=== PATIENT | male | born 1995 | race Caucasian/White ===

== ENCOUNTER 2024-03-09 14:12 | Outpatient (AMB) | payer OTHER, SELFPAY ==
--- NOTE | 2024-03-09 14:18 | MHC.OFFWIV ---
Intake Vital Signs 03/09/24 14:22 Height 5 ft 5 in Weight 230 lb BMI 38.3 BP 122/76 Blood Pressure Location Rt brachial Position Sitting Pulse 102 H Pulse Source Pulse Oximeter Temp 99.3 F Temp Source Oral Pulse Oximetry (%) 98 Intake Visit Reasons: [employer] Stomach/LT wrist Intake Note: pt is here for c/o left wrist pain, due to sprain last week, had it evaluated but recently hurt it again. patient also stated he has been having bad stomach pain Patient Tobacco Use Status: Never used Tobacco Allergies No Known Allergies Allergy (Verified 03/09/24 14:23) Do you need a note to return to daycare/school/sports/work: Yes HPI HPI Comments History of Present Illness Details He presents to office with L wrist and abdominal pain Abdominal pain onset yesterday am Near umbillicus and RLQ No hx of abdominal surgeries Pt states intermittent pain + diarrhea; described as loose. No blood or melena + fever in office and admits to chills Taking Ibuprofen and tylenol and one dose of pepto + nausea without vomiting No eat since yesterday. No eating out this week. 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 No fish eaten Pain currently is 4/10 L wrist pain hurt at work last week; sprain per pt Over weekend he was icing wrist and his cats got into a fight and he had to break it up He tripped on laundry basket and re-hurt his L wrist + red/swelling and painful since thursday night Wrist pain is intermittent 8/10 PFSH Social History Patient Tobacco Use Status: Never used Tobacco Review of Systems Const Reports chills and Reports fever(s) Card Denies chest pain and Denies dyspnea Resp Denies dyspnea GI Reports abdominal pain, Denies melena, Denies hematochezia, Reports diarrhea, Reports nausea and Denies vomiting Denies difficulty urinating Musc Reports back pain (chronic) and Reports joint swelling (L wrist) Physical Exam Vital Signs: Last Vital Signs Temp 99.3 F 03/09/24 14:22 Pulse 102 H 03/09/24 14:22 BP 122/76 03/09/24 14:22 Pulse Ox 98 03/09/24 14:22 BMI result Body Mass Index 38.3 General: Non-toxic, NAD. Speaking full sentences. Skin: Warm dry throughout. No obvious edema, erythema or ecchymosis to L wrist. Eye: EOMI HENT: Bilateral canals clear. TM non-erythematous, non-bulging. No TM perforation or hemotympanum noted. Respiratory: CTA bilaterally. No wheezes, rales or rhonchi Cardiac: RRR. No murmur Abdominal: BS present. + tenderness to palpation umbillical region and RLQ. Negative Psoas sign. + pain with [place]. No rebound or guarding. No palpable masses. No abdominal distention or pusatile mass. MSK: + tenderness to palpation ulnar aspect L wrist. No scaphoid tenerness.+ full rom digit L hand. Neurology: A/O. No aphasia or facial droop. Gait without abnormality Psych: Good mood and affect Assessment & Plan Assessment & Plan (1) Abdominal pain: Code(s): R10.9 - Unspecified abdominal pain Qualifiers: Abdominal location: right lower quadrant Qualified Code(s): R10.31 - Right lower quadrant pain Plan: Patient seen and evaluated. + low grade fever + umbillical pain with RLQ radiation; discussed can not rule out appendicitis. Expect called to [facility] per pt request and he will have his friend bring him Patient gave verbal understanding and had no additional questions or concerns at time of discharge All questions answered (2) Wrist pain, left: Code(s): M25.532 - Pain in left wrist Plan: He will further be evaluated in ER and note for work should be provided Coding Level of Care Code New Pt Level 4 (46299) Diagnoses Right lower quadrant abdominal pain R10.31 Abdominal location: right lower quadrant Wrist pain, left M25.532
[2024-03-09 14:22] VITALS: BP 122/76; PULSE 102; TEMP 37.4; O2SAT 98; BMI 38.3
== END 2024-03-09 15:22 | disposition home or self-care (01) ==
PROVIDERS: PCP Pediatrics; Visit Provider Physician Assistant
DX: R10.31 Right lower quadrant pain (principal); M25.532 Pain in left wrist
CPT/HCPCS: 99204

== ENCOUNTER 2024-03-09 15:12 | Emergency (ER) | payer OTHER, SELFPAY ==
--- NOTE | ~2024-03-09 | US_ITS ---
Examination: Ultrasound appendix History: Right lower quadrant tenderness. Comparison: No prior similar studies are available for comparison. Technique: Grayscale and color Doppler images were performed of the right upper and right lower quadrant. Findings: The appendix is not demonstrated due to overlying gas and stool. No inflammatory changes are identified in the right lower quadrant. There is no free fluid. Images of the [place] pouch were obtained without evidence of free fluid or inflammatory changes. US/US appendix Impression: 1. Evaluation of the appendix is non-diagnostic due to overlying gas and stool. No inflammatory changes identified in the right lower quadrant. 2. No significant sonographic abnormality in the region of the [place] pouch.
--- NOTE | ~2024-03-09 | CT_ITS ---
EXAMINATION: CT ABDOMEN AND PELVIS WITH CONTRAST CLINICAL INFORMATION: Periumbilical and right lower quadrant pain COMPARISON: Ultrasound of the appendix 6:00 PM yesterday TECHNIQUE: Multidetector volumetric images were obtained from the superior aspect of the liver through the pubic symphysis following administration 85 mL of Omnipaque 350 intravenous contrast. Sagittal and coronal reformatted images were obtained on the technologist's workstation. Oral contrast: No This CT examination was performed using dose optimization techniques as appropriate, variously including the following: *Automated exposure control *Adjustment of mA and/or kV according to patient size (this includes techniques or standardized protocols for targeted exams where dose is matched to indication/reason for exam; i.e. extremities or head) *Use of iterative reconstruction technique DLP: 1078 mGy-cm FINDINGS: LUNG BASES: The visualized lung bases are unremarkable. LIVER, GALLBLADDER, AND BILIARY TREE: The liver is normal in size, shape, and attenuation. No focal hepatic lesion or biliary ductal dilatation is present. The gallbladder is unremarkable with no evidence of radiopaque gallstones, gallbladder wall thickening, or obvious pericholecystic inflammatory changes. PANCREAS: Unremarkable. SPLEEN: Unremarkable. ADRENAL GLANDS: Unremarkable. KIDNEYS AND URETERS: The kidneys are normal in size, shape, and attenuation. No hydronephrosis, hydroureter, or calculi seen. No perinephric stranding. BLADDER: Empty but unremarkable GASTROINTESTINAL TRACT: The small and large bowel are unremarkable. The appendix is unremarkable. ABDOMINAL WALL: No significant hernia is appreciated. LYMPH NODES: Normal. VASCULAR: Unremarkable. PELVIC VISCERA: The prostate and seminal vesicles are unremarkable. OSSEOUS STRUCTURES: Unremarkable. CT/CT abdomen pelvis w IV con IMPRESSION: A cause for the patient's abdominal pain has not been found. The appendix is normal. Fleischner guidelines were followed.
--- NOTE | 2024-03-09 15:29 | ED.GENADULT ---
[facility] - General Adult General Chief complaint: Abdominal Pain Stated complaint: ref by UC for possible appendix problem Time Seen by Provider: 03/09/24 22:31 Source: patient Mode of arrival: ambulatory History of Present Illness ED Provider: Dr Toledo [facility] narrative: 29-year-old male without significant past medical history states that he began having periumbilical pain that has now encompassed the right lower quadrant with associated nausea, vomiting as well as chills, an episode of diarrhea, denies urinary symptoms or history of renal colic and no intra-abdominal surgical history. Related Data Previous Rx's ?Medication ?Instructions ?Recorded ondansetron 4 mg disintegrating 4 mg PO Q8H PRN nausea and 03/10/24 tablet vomiting #7 tabs Allergies Allergy/AdvReac Type Severity Reaction Status Date / Time cefaclor [From Ceclor] Allergy Unknown Verified 03/09/24 15:32 Review of Systems Review of Systems: Pertinent positives and negatives as stated in [facility] Past Medical History Source: nursing notes reviewed Social History Social History Patient Tobacco Use Status: Never used Tobacco Advance Directives: No Advance Directives Information Provided: No Physical Exam ED Vital Signs: Vital Signs - 24 hr 03/09/24 15:30 03/09/24 22:21 03/10/24 00:11 Temperature 98.2 F 97.2 F 98.9 F Pulse Rate 84 73 64 Respiratory Rate 16 16 16 Blood Pressure 114/71 121/68 132/66 Pulse Oximetry 98 97 97 Oxygen Delivery Method Room Air Room Air Room Air BMI result Body Mass Index 37.7 VITAL SIGNS: Reviewed. GENERAL: Elevated BMI, Well developed, well nourished, in no acute distress. HEAD: Normocephalic/atraumatic EYES: PERRLA, EOMI EARS: Ext canals without abnormality NOSE: Nares patent bilateral OROPHARYNX: no oral lesions noted, posterior pharynx clear NECK: Supple, no adenopathy LUNGS: Normal breath sounds. No adventitious sounds or accessory muscle use. SpO2<97> CARDIOVASCULAR: Regular rate and rhythm without noted murmurs ABDOMEN: Soft, periumbilical pain, no umbilical hernia appreciated, pain noted in right lower quadrant but McBurney's is negative, non-distended with bowel sounds. MUSCULOSKELETAL: No tenderness, deformities, or effusions noted on gross inspection. EXTREMITIES: No cyanosis, clubbing or edema. SKIN: Inspection of the skin reveals no rashes NEUROLOGIC: Alert and oriented x 4. Strength and sensation to light touch were grossly intact x 4. Course Course Course Narrative: This is a rapid medical exam performed by Weston Lewis NP: Additional HPI, ROS, PE not included below will be deferred to primary provider. Patient is a 29-year-old male presenting from urgent care with concern for appendicitis. Patient reports 2 days of umbilical pain which has since migrated to the RLQ. Nausea without vomiting. Subjective fever/chills. Currently 6/10 pain. Plan; labs, U/S Medications Administered Discontinued Medications Generic Name Dose Route Start Last Admin Trade Name Freq PRN Reason Stop Dose Admin Iohexol 85 ml 03/10/24 00:13 03/10/24 00:14 Iohexol 350 Mg/Ml 100 Ml Infus..Btl IV 03/10/24 00:14 85 ml ONCE ONE Administration Medical Decision Making Medical Decision Making [facility] Narrative: 29-year-old male with history and clinical presentation, DDX: Food poisoning, gastroenteritis, possibility of appendicitis, renal colic felt to be less likely I reviewed all investigations and hematologic indices are negative for leukocytosis/anemia/thrombocytopenia. Coagulation studies are negative. Chemistry indices are negative for SOLITARIO/electrolyte or liver enzyme derangements other than mildly bumped ALT, lipase is within normal limits and CT scan is negative for intra-abdominal abnormality such as no evidence appendicitis/renal colic/gallbladder etiologies. Urinalysis is negative for UTI or hematuria. Appendix ultrasound equivocal as there is no visualization of the appendix. Differential Diagnosis Differential Diagnoses: The differential diagnosis associated with the presentation includes Please see the discussion above Admission/Observation Consideration of admission/observation: Escalation of care including admission/observation considered Please see the discussion above Lab Data [facility] Lab Attestation statement: I reviewed the patient's lab results. Please see the discussion above 03/09/24 16:05 03/09/24 16:05 Labs: Lab Results 03/09/24 03/09/24 Range/Units 16:05 23:26 WBC 10.7 (4.8-10.8) X10*3/uL RBC 5.08 (4.60-5.80) X10*6/uL Hgb 15.3 (14.0-18.0) g/dl Hct 45.2 (42.0-52.0) % MCV 89.0 (80.0-98.0) fL MCH 30.1 (27.0-33.0) pg MCHC 33.8 (31.0-36.0) g/dl RDW 13.6 (11.0-16.0) % Plt Count 337 (160-400) X10*3/uL MPV 9.1 L (9.4-12.4) fL Immature Gran % (Auto) 0.3 (0.0-0.4) % Neut % (Auto) 72.1 (45-73) % Lymph % (Auto) 20.6 (20-40) % [place] % (Auto) 5.9 (2-11) % Eos % (Auto) 0.7 (0-4) % Baso % (Auto) 0.4 (0-2) % Lymph # (Auto) 2.2 (1.2-4.9) X10*3/uL [place] # (Auto) 0.6 (0.1-1.2) X10*3/uL Eos # (Auto) 0.1 (0.0-0.4) X10*3/uL Baso # (Auto) 0.0 (0.0-0.2) X10*3/uL Abs Immat Gran (auto) 0.03 (0.00-0.03) X10*3/uL Absolute Neuts (auto) 7.7 (2.0-8.3) x10*3/uL Absolute Nucleated RBC 0.000 (0.0-0.012) X10*3/uL Nucleated RBC % (auto) 0.0 (0.0-0.2) /100WBC PT 12.1 (11.1-13.3) SEC INR 1.0 (0.9-1.1) Sodium 141 (135-145) mmol/L Potassium 4.0 (3.3-5.1) mmol/L Chloride 108 (96-108) mmol/L Carbon Dioxide 25 (22-29) mmol/L Anion Gap 12 (12-20) BUN 13 (9-16) mg/dL Creatinine 0.94 (0.5-1.4) mg/dL Estim Creat Clear Calc 129.0 Estimated GFR > 60 Random Glucose 96 (60-115) mg/dL Calcium 10.0 (8.4-10.2) mg/dL Total Bilirubin 0.2 (0.0-1.0) mg/dL AST 27 (5-37) U/L ALT 45 H (0-40) U/L Alkaline Phosphatase 142 H (39-117) U/L Total Protein 7.7 (6.5-8.0) g/dL Albumin 4.8 (3.5-5.0) g/dL Lipase 21 (8-78) U/L Urine Color Yellow Urine Appearance Clear Urine pH 5.5 (5.0-9.0) Ur Specific [place] 1.020 (1.005-1.025) Urine Protein Negative (Neg-Trace) mg/dL Urine Glucose (UA) Negative (Negative) mg/dL Urine Ketones Negative (Negative) mg/dL Urine Blood Negative (Negative) Urine Nitrite Negative (Negative) Ur Leukocyte Esterase Negative (Negative) Radiology Impression Discussion of test interpretation with radiology: I have reviewed the radiologist's reading. Radiologist Impression: Please see the discussion above Critical Care Time Critical Care Time Critical Care Time: Yes Total Critical Care Time: 30 Attestation: I personally attest to this time spent taking care of the patient. Discharge Plan Discharge Clinical Impression: Gastroenteritis, Food poisoning Abdominal pain Qualifiers: Abdominal location: right lower quadrant Qualified Code(s): R10.31 - Right lower quadrant pain Patient Disposition: Home, Self-Care Instructions: Gastroenteritis (ED), Food Poisoning (ED) Additional Instructions: 1. You have been prescribed medication to help control the nausea as well as you will need to increase water intake. 2. Follow-up with your primary care doctor in the next 1-2 days. Return to the ER for any worsening symptoms. Prescriptions: New ondansetron 4 mg tablet,disintegrating 4 mg PO Q8H PRN (Reason: nausea and vomiting) Qty: 7 0RF Print Language: Venezuelan
[2024-03-09 15:30] VITALS: BP 114/71; PULSE 84; RESP 16; TEMP 36.8; O2SAT 98; BMI 37.7
[2024-03-09 16:08] LABS: MANUAL DIFF FLAG NO
[2024-03-09 16:17] LABS: Basophils Percent Auto 0.4 % (0-2); Eosinophils Absolute Auto 0.1 X10*3/uL (0.0-0.4); Eosinophils Percent Auto 0.7 % (0-4); Hematocrit 45.2 % (42.0-52.0); Hemoglobin 15.3 g/dl (14.0-18.0); Imm Gran Abs Auto 0.03 X10*3/uL (0.00-0.03); Imm Gran Pct Auto 0.3 % (0.0-0.4); Lymphocytes Absolute Auto 2.2 X10*3/uL (1.2-4.9); Lymphocytes Percent Auto 20.6 % (20-40); Mean Corpuscular HGB Conc 33.8 g/dl (31.0-36.0); Mean Corpuscular Hemoglobin 30.1 pg (27.0-33.0); Mean Platelet Volume 9.1 fL (9.4-12.4); Monocytes Absolute Auto 0.6 X10*3/uL (0.1-1.2); Monocytes Percent Auto 5.9 % (2-11); Neutrophils Absolute Auto 7.7 x10*3/uL (2.0-8.3); Neutrophils Percent Auto 72.1 % (45-73); Platelet Count 337 X10*3/uL (160-400); Prothrombin Time 12.1 SEC (11.1-13.3); Red Blood Count 5.08 X10*6/uL (4.60-5.80); Red Cell Distribution Width 13.6 % (11.0-16.0); White Blood Count 10.7 X10*3/uL (4.8-10.8)
[2024-03-09 16:24] LABS: Alanine Aminotransferase 45 U/L (0-40); Albumin Level 4.8 g/dL (3.5-5.0); Alkaline Phosphatase 142 U/L (39-117); Anion Gap 12 (12-20); Aspartate Amino Transferase 27 U/L (5-37); Bilirubin Total 0.2 mg/dL (0.0-1.0); Blood Urea Nitrogen 13 mg/dL (9-16); Carbon Dioxide 25 mmol/L (22-29); Chloride 108 mmol/L (96-108); Estimated Glomerular Filt Rate > 60; Glucose Random 96 mg/dL (60-115); Sodium 141 mmol/L (135-145); Total Protein 7.7 g/dL (6.5-8.0)
[2024-03-09 22:21] VITALS: BP 121/68; PULSE 73; RESP 16; TEMP 36.2; O2SAT 97
[2024-03-09 23:00] LABS: Lipase 21 U/L (8-78)
[2024-03-09 23:34] LABS: Appearance Urine Clear; Color Urine Yellow; Glucose Urine UA Negative (Negative); Leukocyte Esterase Urine Negative (Negative); Nitrite Urine Negative (Negative); PH 5.5 (5.0-9.0); Urine Blood Negative (Negative); Urine Ketones Negative (Negative); Urine Protein Negative (Neg-Trace)
[2024-03-10 00:11] VITALS: BP 132/66; PULSE 64; RESP 16; TEMP 37.2; O2SAT 97
[2024-03-10] MEDS: iohexoL 350 MG/ML 100 ML INFUS..BTL 85 ML IV (00:14)
[2024-03-10] MEDS: Ondansetron ODT 4 MG TAB.RAPDIS TRANSLINGU (01:07)
== END 2024-03-10 01:34 | disposition home or self-care (01) ==
PROVIDERS: Registered Nurse Emergency; Emergency Provider Student in an Organized Health Care Education/Training Program
DX: K52.9 Noninfective gastroenteritis and colitis, unspecified (principal); A05.9 Bacterial foodborne intoxication, unspecified; R10.31 Right lower quadrant pain; R11.2 Nausea with vomiting, unspecified; R68.83 Chills (without fever)
CPT/HCPCS: 36415; 74177; 76705; 80053; 81003; 83690; 85025; 85610; 99283; 99284; Q9967